=== PATIENT | male | born 1980 | race Caucasian/White ===

== ENCOUNTER 2017-04-14 18:51 | Emergency (ER) | payer BC ==
[~2017-04-14 18:51] MED LIST: BENADRYL50 MG PO; CATAFLAM50 MG PO; CLARITIN10 MG PO; IBU800 MG PO; MEDROL DOSEPAK4 MG PO; PEPCID20 MG PO
[2017-04-14 18:57] VITALS: BP 132/73
[2017-04-14] MEDS ORDERED: NAPROSYN500 MG PO (19:08)
[2017-04-14] MEDS ORDERED: NORCO 5-325 TA1 EACH PO (19:20)
== END 2017-04-14 19:05 | disposition home or self-care (01) ==
LOC: ED 18:51
DX: S92.502A Displaced unspecified fracture of left lesser toe(s), initial encounter for closed fracture (principal); R03.0 Elevated blood-pressure reading, without diagnosis of hypertension; W22.8XXA Striking against or struck by other objects, initial encounter; Y93.89 Activity, other specified; Y92.89 Other specified places as the place of occurrence of the external cause; Y99.8 Other external cause status

== ENCOUNTER → 2021-08-26 | Outpatient (CLI) | payer OTHER ==
[~2021-08-26] MED LIST changes: +NAPROSYN500 MG PO; +NORCO 5-325 TA1 EACH PO
== END | disposition home or self-care (01) ==
LOC: RAD 08:00 → RAD/SH 08:29
PROVIDERS: ATTEND Specialist
DX: R13.10 Dysphagia, unspecified (principal)

== ENCOUNTER → 2022-01-10 | Outpatient (CLI) | payer OTHER | END | disposition home or self-care (01) | LOC: RAD 15:37 | PROVIDERS: ATTEND Physical Therapist | DX: R20.2 Paresthesia of skin (principal) ==

== ENCOUNTER 2023-04-07 21:30 | Emergency (ER) | payer OTHER ==
[~2023-04-07] VITALS: Ht 182.8 cm; Wt 86.2 kg
[2023-04-07 21:40] VITALS: BP 141/90
== END 2023-04-07 23:02 | disposition home or self-care (01) ==
LOC: ED 21:30
DX: J10.1 Influenza due to other identified influenza virus with other respiratory manifestations (principal); Z88.8 Allergy status to other drugs, medicaments and biological substances; Z98.890 Other specified postprocedural states; Z20.822 Contact with and (suspected) exposure to COVID-19